=== PATIENT | male | born 1970 | race Caucasian/White ===

== ENCOUNTER 2018-03-11 07:23 | Emergency (ER) | payer OTHER, SELFPAY ==
[2018-03-11 07:27] VITALS: BP 173/102; PULSE 70; RESP 17; TEMP 36.6; O2SAT 100
--- NOTE | 2018-03-11 07:45 | W.ED.GENAD ---
Discharge Plan Disposition Patient Disposition: HOME Condition: Good Discharge Details Chief Complaint: Laceration Clinical Impression: Laceration Primary Care Provider: Yasmany Askew ED Provider: He Odom Home Meds and New Rx's Prescriptions: No Action divalproex [Depakote] 500 MG tablet,delayed release (DR/EC) 1,000 mg PO DIRECTED Qty: 180 RF: 0 carbamazepine [Tegretol] 200 MG tablet 200 mg PO DIRECTED Qty: 180 RF: 0 nfdhtihgzasc-tazh-zaqej acid [Centrum Complete] 1 EACH tablet 1 tab-cap PO DAILY RF: 0 levocarnitine [L-Carnitine] 500 MG tablet 1,000 mg PO BID RF: 0 lisinopril-hydrochlorothiazide 1 EACH tablet 1 tab-cap PO DAILY Qty: 90 RF: 1 Discharge Instructions Instructions: Laceration (ED) Additional Instructions: Please keep the hand covered, do not submerge in water. If you notice any redness, swelling, worsening pain, please return immediately for reevaluation. If you notice any worsening of your symptoms, or any new symptoms such as vomiting, diarrhea, fever, chills, shortness of breath, chest pain, numbness, weakness, or fainting , please return immediately to the emergency department for reevaluation. Please follow up with your primary care provider as soon as possible for reassessment and reevaluation. As always, it was a pleasure participating in your medical care today. Referrals: Yasmany Askew, DO [Primary Care Provider] - Medical Decision Making This is a pleasant 47-year-old male who presents with a small 1.5 cm laceration that is linear over the distal tip of his middle finger on his right nondominant hand. 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 Bleeding is now stopped. Sensation is intact, flexion extension of the distal tip of the fingers intact. The area was cleaned vigorously the area was Dermabond it successfully without any difficulty or complication. His last tetanus was 9 years ago. We will updated today. With normal sensation normal movement a clean cut, no signs of infection or dirty wound involvement, feel he can be safely discharged. I have extensively reviewed the treatment plan and discharge instructions with the patient. I have addressed all patient concerns at this time. The patient was made aware of what symptoms to monitor for that would warrant a return to the emergency department. Discussed the plan with the patient, they demonstrate verbal understanding and agreement with our assessment and plan at this time. HPI General Date/Time Provider Initiated Documentation: 03/11/18 07:45. HPI Narrative: This is a 47-year-old male with a past medical history of seizures for which he takes Depakote and Tegretol, who presents for a laceration. Roughly 30 minutes prior to arrival the patient cut the distal tip of his middle finger on his right hand with a clean box office manager. Bleeding was stopped after pressure was applied. He is left-hand dominant. He denies any numbness, tingling, or weakness. He has no other complaints. He does not take any blood thinners. He denies any recent surgeries. Pertinent family history, IV or illicit drug use. Related Data Home Medications Medication Instructions Recorded Confirmed carbamazepine [Tegretol] 200 mg PO DIRECTED #180 08/12/12 03/11/18 divalproex [Depakote] 1,000 mg PO DIRECTED #180 08/12/12 03/11/18 tab-cap ycfpcmdjjlir-nrng-wilis acid 1 tab-cap PO DAILY tab-cap 08/30/15 03/11/18 [Centrum Complete Multivit Tab] levocarnitine [L-Carnitine] 1,000 mg PO BID 10/22/17 03/11/18 lisinopril-hydrochlorothiazide 1 tab-cap PO DAILY #90 tab-cap 11/19/17 03/11/18 Previous Rx's Medication Instructions Recorded lisinopril-hydrochlorothiazide 1 tab-cap PO DAILY #90 tab-cap 11/19/17 Allergies Allergy/AdvReac Type Severity Reaction Status Date / Time No Known Allergies Allergy Unverified 10/22/17 11:10 General Stated Complaint: Laceration LATIA: 4 Review of Systems Review of Systems All systems reviewed & are unremarkable except as noted in HPI and below PFSH Family History Mother Essential hypertension Neoplasm Father No problems noted. Sister No problems noted. Brother No problems noted. Grandfather Essential hypertension Heart disease Hyperlipidemia Grandfather Essential hypertension Heart disease Grandmother Neoplasm Grandmother Essential hypertension Heart disease Neoplasm Social History Smoking/Tobacco Use Status: Former Tobacco Use Surgical History knee repair Exam Narrative Exam Narrative: 1.Const: Well-nourished, Well-developed, appearing stated age 2.Eyes: PERRL, no conjunctival injection, and symmetrical lids. 3.ENT: Atraumatic external nose and ears. Moist MM. Neck: Symmetric, trachea midline, No thyromegaly. 4.CVS: +S1/S2, No murmurs or gallops. Peripheral pulses 2+ and equal in all extremities. Brisk capillary refill in all extremities. 5.RESP: Unlabored respiratory effort. Clear to auscultation bilaterally. No wheezes rales or rhonchi 6.GI: Soft, Nontender/Nondistended, No hepatosplenomegaly. No guarding or rebound. 7.MSK: Normocephalic/Atraumatic, Extremities w/o deformity or ttp No cyanosis or clubbing, Normal movement of all extremities 8.Skin: Warm, Dry. No rashes or lesions. The patient does have a small 1.5 cm laceration to the distal tip of his middle finger on the right. It is perpendicular to the length of the finger. Superficial in nature. Skin flap is noted. No evidence of deep tissue or tendon involvement. Normal flexion and extension of the distal tip. Normal sensation throughout the finger. There is even sensation present on the skin was lacerated on my exam. No active bleeding. Brisk capillary refill. 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 Sensation grossly intact, no focal neurologic deficits. 10.Psych: (AAO) x3. Appropriate mood and affect Course Vital Signs Temperature 36.6 C 03/11/18 07:27 Pulse 70 03/11/18 07:27 Respiratory Rate 17 03/11/18 07:27 Blood Pressure 173/102 H 03/11/18 07:27 Pulse Oximetry 100 03/11/18 07:27 Temperature 36.6 C 03/11/18 07:27 Temperature Source Temporal Artery Scan 03/11/18 07:27 Pulse 70 03/11/18 07:27 Respiratory Rate 17 03/11/18 07:27 Respiratory Effort 03/11/18 07:29 Blood Pressure 173/102 H 03/11/18 07:27 Blood Pressure Position Sitting 03/11/18 07:27 Pulse Oximetry 100 03/11/18 07:27 Oxygen Delivery Method Room Air 03/11/18 07:27 Oxygen Flow Rate 0 03/11/18 07:27 Pain Level 1 03/11/18 07:27
[2018-03-11] MEDS: Tetanus & Diphtheria Tox,ADULT 0.5 ML VIAL IM (07:48)
--- NOTE | 2018-03-11 07:51 | ED.GENADUL_ITS ---
Discharge Plan Disposition Patient Disposition: HOME Condition: Good Discharge Details Chief Complaint: Laceration Clinical Impression: Laceration Primary Care Provider: Yasmany Askew ED Provider: He Odom Home Meds and New Rx's Prescriptions: No Action divalproex [Depakote] 500 MG tablet,delayed release (DR/EC) 1,000 mg PO DIRECTED Qty: 180 RF: 0 carbamazepine [Tegretol] 200 MG tablet 200 mg PO DIRECTED Qty: 180 RF: 0 qnoodphnewvl-dwcg-jwtfd acid [Centrum Complete] 1 EACH tablet 1 tab-cap PO DAILY RF: 0 levocarnitine [L-Carnitine] 500 MG tablet 1,000 mg PO BID RF: 0 lisinopril-hydrochlorothiazide 1 EACH tablet 1 tab-cap PO DAILY Qty: 90 RF: 1 Discharge Instructions Instructions: Laceration (ED) Additional Instructions: Please keep the hand covered, do not submerge in water. If you notice any redness, swelling, worsening pain, please return immediately for reevaluation. If you notice any worsening of your symptoms, or any new symptoms such as vomiting, diarrhea, fever, chills, shortness of breath, chest pain, numbness, weakness, or fainting , please return immediately to the emergency department for reevaluation. Please follow up with your primary care provider as soon as possible for reassessment and reevaluation. As always, it was a pleasure participating in your medical care today. Referrals: Yasmany Askew, DO [Primary Care Provider] - Medical Decision Making This is a pleasant 47-year-old male who presents with a small 1.5 cm laceration that is linear over the distal tip of his middle finger on his right nondominant hand. 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 Bleeding is now stopped. Sensation is intact, flexion extension of the distal tip of the fingers intact. The area was cleaned vigorously the area was Dermabond it successfully without any difficulty or complication. His last tetanus was 9 years ago. We will updated today. With normal sensation normal movement a clean cut, no signs of infection or dirty wound involvement, feel he can be safely discharged. I have extensively reviewed the treatment plan and discharge instructions with the patient. I have addressed all patient concerns at this time. The patient was made aware of what symptoms to monitor for that would warrant a return to the emergency department. Discussed the plan with the patient, they demonstrate verbal understanding and agreement with our assessment and plan at this time. HPI General Date/Time Provider Initiated Documentation: 03/11/18 07:45 . HPI Narrative: This is a 47-year-old male with a past medical history of seizures for which he takes Depakote and Tegretol, who presents for a laceration. Roughly 30 minutes prior to arrival the patient cut the distal tip of his middle finger on his right hand with a clean telephone coin box collector. Bleeding was stopped after pressure was applied. He is left-hand dominant. He denies any numbness, tingling, or weakness. He has no other complaints. He does not take any blood thinners. He denies any recent surgeries. Pertinent family history, IV or illicit drug use. Related Data Home Medications Medication Instructions Recorded Confirmed carbamazepine [Tegretol] 200 mg PO DIRECTED #180 08/12/12 03/11/18 divalproex [Depakote] 1,000 mg PO DIRECTED #180 08/12/12 03/11/18 tab-cap vgeeprouftcv-sxod-ciyqp acid 1 tab-cap PO DAILY tab-cap 08/30/15 03/11/18 [Centrum Complete Multivit Tab] levocarnitine [L-Carnitine] 1,000 mg PO BID 10/22/17 03/11/18 lisinopril-hydrochlorothiazide 1 tab-cap PO DAILY #90 tab-cap 11/19/17 03/11/18 Previous Rx's Medication Instructions Recorded lisinopril-hydrochlorothiazide 1 tab-cap PO DAILY #90 tab-cap 11/19/17 Allergies Allergy/AdvReac Type Severity Reaction Status Date / Time No Known Allergies Allergy Unverified 10/22/17 11:10 General Stated Complaint: Laceration LATIA: 4 Review of Systems Review of Systems All systems reviewed & are unremarkable except as noted in HPI and below PFSH Family History Mother Essential hypertension Neoplasm Father No problems noted. Sister No problems noted. Brother No problems noted. Grandfather Essential hypertension Heart disease Hyperlipidemia Grandfather Essential hypertension Heart disease Grandmother Neoplasm Grandmother Essential hypertension Heart disease Neoplasm Social History Smoking/Tobacco Use Status: Former Tobacco Use Surgical History knee repair Exam Narrative Exam Narrative: 1.Const: Well-nourished, Well-developed, appearing stated age 2.Eyes: PERRL, no conjunctival injection, and symmetrical lids. 3.ENT: Atraumatic external nose and ears. Moist MM. Neck: Symmetric, trachea midline, No thyromegaly. 4.CVS: +S1/S2, No murmurs or gallops. Peripheral pulses 2+ and equal in all extremities. Brisk capillary refill in all extremities. 5.RESP: Unlabored respiratory effort. Clear to auscultation bilaterally. No wheezes rales or rhonchi 6.GI: Soft, Nontender/Nondistended, No hepatosplenomegaly. No guarding or rebound. 7.MSK: Normocephalic/Atraumatic, Extremities w/o deformity or ttp No cyanosis or clubbing, Normal movement of all extremities 8.Skin: Warm, Dry. No rashes or lesions. The patient does have a small 1.5 cm laceration to the distal tip of his middle finger on the right. It is perpendicular to the length of the finger. Superficial in nature. Skin flap is noted. No evidence of deep tissue or tendon involvement. Normal flexion and extension of the distal tip. Normal sensation throughout the finger. There is even sensation present on the skin was lacerated on my exam. No active bleeding. Brisk capillary refill. 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 Sensation grossly intact, no focal neurologic deficits. 10.Psych: (AAO) x3. Appropriate mood and affect Course Vital Signs Temperature 36.6 C 03/11/18 07:27 Pulse 70 03/11/18 07:27 Respiratory Rate 17 03/11/18 07:27 Blood Pressure 173/102 H 03/11/18 07:27 Pulse Oximetry 100 03/11/18 07:27 Temperature 36.6 C 03/11/18 07:27 Temperature Source Temporal Artery Scan 03/11/18 07:27 Pulse 70 03/11/18 07:27 Respiratory Rate 17 03/11/18 07:27 Respiratory Effort 03/11/18 07:29 Blood Pressure 173/102 H 03/11/18 07:27 Blood Pressure Position Sitting 03/11/18 07:27 Pulse Oximetry 100 03/11/18 07:27 Oxygen Delivery Method Room Air 03/11/18 07:27 Oxygen Flow Rate 0 03/11/18 07:27 Pain Level 1 03/11/18 07:27
== END 2018-03-11 07:54 | disposition home or self-care (01) ==
PROVIDERS: Emergency Provider Student in an Organized Health Care Education/Training Program; PCP Emergency Medicine
DX: S61.212A Laceration without foreign body of right middle finger without damage to nail, initial encounter (principal); W26.0XXA Contact with knife, initial encounter; Y99.0 Civilian activity done for income or pay
CPT/HCPCS: 12001; 90471

== ENCOUNTER 2019-06-22 15:44 | Outpatient (CLI) | payer OTHER, SELFPAY ==
[2019-06-22 16:24] LABS: HCT 33.8 % (40.0-50.0); Mean Corp. HGB Concentration 35.5 g/dL (32.0-36.0); Mean Corpuscular Hemoglobin 32.8 pg (27.0-33.0); Mean Corpuscular Volume 92.3 fL (80-95); Mean Platelet Volume 8.7 fL (8.0-11.0); Platelet Count 189 x1000/uL (130-400); RBC 3.66 m/cumm (4.50-6.00); RBC Distribution Width 12.4 % (11.8-14.1); White Blood Cell Count 5.21 k/cumm (4.4-10.8)
[2019-06-22 17:37] LABS: ESR 17 mm/hr (0-15)
[2019-06-22 19:11] LABS: Anion Gap 11.2 mmol/L (3-11); BUN 22 mg/dL (7-18); C-Reactive Protein 3.31 mg/dL (0.0-0.3); CO2 26.8 mmol/L (21.0-32.0); CREATININE 0.67 mg/dL (0.70-1.30); Chloride 105 mmol/L (98-107); Glucose 96 mg/dL (74-106); Sodium 143 mmol/L (136-145)
== END 2019-06-22 16:04 ==
PROVIDERS: PCP Emergency Medicine; Visit Provider Emergency Medicine
DX: I10 Essential (primary) hypertension (principal); K52.9 Noninfective gastroenteritis and colitis, unspecified; R19.7 Diarrhea, unspecified
CPT/HCPCS: 36415; 80048; 85027; 85652; 86140

== ENCOUNTER 2019-07-01 09:27 | Outpatient (REF) | payer OTHER, SELFPAY ==
[2019-07-03 10:59] LABS: Campylobacter PCR Negative (Negative); Salmonella PCR Negative (Negative); Shiga Toxin PCR Negative (Negative); Shigella/Enteroinvasive Ecoli Negative (Negative)
== END 2019-07-01 09:47 ==
LOC: LBN 09:27
PROVIDERS: PCP Emergency Medicine; Visit Provider Physical Therapy Assistant
DX: K52.9 Noninfective gastroenteritis and colitis, unspecified (principal)
CPT/HCPCS: 87505; 87177

== ENCOUNTER 2021-07-16 15:37 | Outpatient (REF) | payer BC, SELFPAY ==
[2021-07-18 12:26] LABS: COVID-19 RT-PCR UVMMC Result Negative (Negative)
== END 2021-07-16 15:38 | disposition home or self-care (01) ==
LOC: LBN 15:37
PROVIDERS: PCP Family Medicine; Visit Provider Nurse Practitioner
DX: R05.9 Cough, unspecified (principal); Z20.822 Contact with and (suspected) exposure to COVID-19
CPT/HCPCS: U0003

== ENCOUNTER → 2021-07-17 16:28 | Outpatient (CLI) | payer BC, SELFPAY ==
--- NOTE | 2021-07-17 08:45 | DI.RAD_ITS ---
Exam(s) XR CHEST 2V PA LATERAL EXAM: XR CHEST 2V PA LATERAL CLINICAL HISTORY: cough, R05.9 TECHNIQUE: 2D digital imaging was performed. COMPARISON: CR CHEST 2 VIEWS PA,LAT from 04/01/2010 FINDINGS: The heart is not enlarged. The lungs are clear and well expanded. No pleural effusion seen. Mediastin al contours appear intact. IMPRESSION: Normal chest. RADIATION DOSE DELIVERED: Total DLP
== END ==
PROVIDERS: PCP Family Medicine; Visit Provider Nurse Practitioner
DX: R05.8 Other specified cough (principal)
CPT/HCPCS: 71046

== ENCOUNTER 2022-03-13 01:58 | Outpatient (CLI) | payer BC, SELFPAY ==
[2022-03-13 08:10] LABS: ALT 29 U/L (16-63); AST 15 U/L (15-37); Albumin 3.7 g/dL (3.4-5.0); Alkaline Phosphatase 61 U/L (46-116); Anion Gap 8.6 mmol/L (3-11); BUN 12 mg/dL (7-18); Bilirubin, Total 0.5 mg/dL (0.2-1.0); CO2 28.4 mmol/L (21.0-32.0); CREATININE 0.7 mg/dL (0.70-1.30); Calcium 8.5 mg/dL (8.5-10.1); Calculated LDL 129 mg/dL (<100); Chloride 101 mmol/L (98-107); Cholesterol 208 mg/dL (<200); Estimated GFR 111.56 (mL/min/1.73m2); Glucose 139 mg/dL (74-106); HDL Cholesterol 50 mg/dL (40-60); Potassium 3.5 mmol/L (3.5-5.1); Sodium 138 mmol/L (136-145); Total Protein 7.3 g/dL (6.4-8.2); Triglyceride 146 mg/dL (<150)
[2022-03-13 19:39] LABS: PSA, Screening 0.3 ng/mL (<=3.5)
[2022-03-16 09:57] LABS: Hepatitis C Ab w Rflx HCV PCR Negative (Negative)
[2022-03-16 10:27] LABS: HIV-1/2 Ag & Ab Screen Negative (Negative)
== END 2022-03-13 01:59 | disposition home or self-care (01) ==
LOC: LBO 01:58
PROVIDERS: PCP Family Medicine; Visit Provider Family Medicine
DX: I10 Essential (primary) hypertension (principal); Z15.09 Genetic susceptibility to other malignant neoplasm; Z11.3 Encounter for screening for infections with a predominantly sexual mode of transmission; Z11.4 Encounter for screening for human immunodeficiency virus [HIV]; Z11.59 Encounter for screening for other viral diseases; Z12.5 Encounter for screening for malignant neoplasm of prostate
CPT/HCPCS: 36415; 80053; 80061; 84153; 86803; 87389

== ENCOUNTER 2022-11-18 17:40 | Outpatient (CLI) | payer BC, SELFPAY ==
--- NOTE | 2022-11-18 13:15 | DI.RAD_ITS ---
Exam(s) XR CHEST 2V PA LATERAL EXAM: XR CHEST 2V PA LATERAL CLINICAL HISTORY: SOB, R06.02; Cough, R05.9; Scattered rhonchi, lt lung, R09.89 TECHNIQUE: 2D digital imaging was performed of the chest. Two images were obtained. PA and lateral views were obtained. COMPARISON: CR XR CHEST 2V PA LATERAL from 07/17/2021 FINDINGS: MEDIASTINUM: Normal. HEART: Normal. PULMONARY VASCULATURE: Normal. LUNGS: Clear. PLEURAL SPACE: No pleural effusion or pneumothorax. BONE:Within normal limits for the patient's age. OTHER FINDINGS:Normal. IMPRESSION: No acute pulmonary findings. DATA REPOSITORY: RADIATION DOSE DELIVERED:
== END 2022-11-18 18:00 ==
LOC: DI 17:41
PROVIDERS: PCP Family Medicine; Visit Provider Nurse Practitioner Adult Health
DX: R05.9 Cough, unspecified (principal); R06.02 Shortness of breath; R09.89 Other specified symptoms and signs involving the circulatory and respiratory systems
CPT/HCPCS: 71046

== ENCOUNTER 2024-01-12 14:51 | Outpatient (CLI) | payer BC, SELFPAY ==
--- NOTE | 2024-01-12 14:30 | DI.RAD_ITS ---
Exam(s) XR SHOULDER LT COMPLETE 2+V EXAM: XR SHOULDER LT COMPLETE 2+V CLINICAL HISTORY: BILATERAL SHOULDER PAIN. TECHNIQUE: 2D digital imaging was performed. Three views. COMPARISON: No exams were available for comparison FINDINGS: BONES: No acute fracture is present. No bony destructive lesion is seen. JOINTS: No dislocation present. Glenohumeral joint space is maintained. Minimal spurring at the AC joint. SOFT TISSUE: Normal. IMPRESSION: Minimal degenerative changes. DATA REPOSITORY: RADIATION DOSE DELIVERED:
--- NOTE | 2024-01-12 15:09 | DI.RAD_ITS ---
Exam(s) XR SHOULDER RT COMPLETE 2+V EXAM: XR SHOULDER RT COMPLETE 2+V CLINICAL HISTORY: BILATERAL SHOULDER PAIN. TECHNIQUE: 2D digital imaging was performed. Five views. COMPARISON: CR XR SHOULDER LT COMPLETE 2+V from 01/12/2024 FINDINGS: BONES: No acute fracture is present. No bony destructive lesion is seen. JOINTS: No dislocation present. No significant degenerative changes SOFT TISSUE: Normal. IMPRESSION: Unremarkable radiographs of the right shoulder. DATA REPOSITORY: RADIATION DOSE DELIVERED:
== END 2024-01-12 14:52 | disposition home or self-care (01) ==
LOC: DIORS 14:51
PROVIDERS: PCP Family Medicine; Visit Provider Student in an Organized Health Care Education/Training Program
DX: M25.511 Pain in right shoulder (principal); M25.512 Pain in left shoulder; M19.012 Primary osteoarthritis, left shoulder
CPT/HCPCS: 73030

== ENCOUNTER 2024-02-23 09:18 | Day surgery (SDC) | payer BC, SELFPAY ==
[2024-02-21 09:56] VITALS: BP 161/92; PULSE 63; RESP 16; TEMP 36.4; O2SAT 100
--- NOTE | 2024-02-22 19:51 | W.PM.DSUDISC ---
Date of service: 02/23/24 Time of Service: 13:11 Discharge Plan Disposition Patient Disposition: Home Condition: Good Discharge Details Reason For Visit: excisiona and closure of seborrheic keratosis Attending Provider: Demarcus Garcia Primary Care Provider: Yasmany Casiano Home Meds and New Rx's Prescriptions: Continued fluticasone propionate 50 mcg/actuation spray,suspension 1 spray intranasal DAILY PRN (Reason: Sinus pain/pressure) Rx Instructions: administer into each nostril L-Carnitine 500 mg tablet 500 mg PO BID carbamazepine [Tegretol] 200 mg tablet See Rx Instructions PO DIRECTED Qty: 450 3RF Rx Instructions: t2 tabs QAM and QHS and t1 tab Qnoon PO as directed; divalproex [Depakote] 500 mg tablet,delayed release (DR/EC) See Rx Instructions PO DIRECTED Qty: 360 3RF Rx Instructions: t1 tab qam, qnoon and t2 tabs qhs PO as directed; albuterol sulfate [Ventolin HFA] 90 mcg/actuation HFA aerosol inhaler 1 - 2 puff inhalation Q4H PRN (Reason: shortness of breath or wheezing) Qty: 8.5 3RF lisinopril-hydrochlorothiazide 20-12.5 mg tablet 1 tab PO DAILY Qty: 90 3RF Discharge Instructions Additional Instructions: Festus, it was great seeing you today, and I hope you are comfortable during the procedure. As you know, everything went very smoothly. We removed that lesion, and I will send it off to the pathologist for their review. You have 4 stitches in the skin that will have to be removed in the office next week. I have taken the liberty of making a follow-up appointment on to get the stitches out on the at 1 PM. You also have some Steri-Strips over top of that. Expect to have a little bit of swelling over the area, and perhaps some bruising. That is extremely common. You may find that a little ice pack or something cool over the incision will help reduce swelling, and may make you feel a little bit better. You can wash your face this evening with warm soapy water. I would like you to apply a thin layer of the bacitracin ointment once in the evening and once in the morning every day. It can go right over the Steri-Strips and stitches. If you find the incision becomes itchy during the course of the day, the bacitracin ointment may help with that as well. If you need anything at all, or have any questions, please do not hesitate to call. Stand Alone Forms: Dotty Rees ([facility]) Referrals: Demarcus Garcia MD [ [facility] STAFF PHYSICIAN] - (February 28 at 1 PM) Activity:: Activity as Tolerated Remove Dressings/Wound Care:: 24 hours Shower/Bathe:: 24 hours Diet:: As Tolerated Discharge Orders Discharge Orders: Discharge Order (Routine); Ordered 02/22/24 Ordered By: Demarcus Garcia DS: Diagnosis Discharge Diagnosis (1) Seborrheic keratosis: Status: Acute Asessment and Plan: Outpatient postoperative follow-up next week for suture removal
--- NOTE | 2024-02-22 19:54 | OPPNE_ITS ---
Date of service: 02/23/24 Time of Service: 13:25 Procedure Note Date of procedure: 02/23/24 Procedure: Excision and closure of seborrheic keratosis Surgeon/Proceduralist/Physician: Demarcus Garcia Procedure Diagnosis: seborrheic keratosis Procedure Indications: Festus is a 53-year-old male with a lesion on the right maxilla that seems consistent with a support keratosis. Its become increasingly symptomatic, with particular challenges associated with shaving around the area Procedure Description: Festus was brought back to the operating room, and placed in a semirecumbent position. Great care was taken to ensure that he was supported and padded appropriately and that he was comfortable. Next, I prepped the right maxilla w ith Betadine, and draped the area appropriately. I then established a generous field block using local anesthetic with epinephrine. Next, using a 15 blade scalpel, I made a semielliptical incision in the upper and lower portions of the skin lesion. I dissected down to the subcutaneous space, and sharply divided the full-thickness of the skin away from the surrounding fat. The excision was approximately 2-1/2 cm long by about 0.75 centimeters wide. Fine Bovie tip electrocautery was used for hemostasis. There was minimal bleeding. Skin was then closed with interrupted 6-0 Prolene stitches and Steri-Strips. Specimen was marked with a single suture marking the corner towards the patient's nose. Festus was then brought back to the day surgery unit and provided instructions for discharge.
[2024-02-23] MEDS: Gabapentin 300 MG CAP PO (10:17)
[2024-02-23] MEDS: Acetaminophen 500 MG TAB 1000 MG PO (10:17)
--- NOTE | 2024-02-23 13:00 | SKI_PTH ---
PATIENT: Festus Taveras LOC: [facility] U#:[id number] AGE/SX: 53/M ROOM: RE02/23/[address]: Demarcus Garcia MD : [id number] BED: DIS: 02/23/2024 SPEC #: [id number] RECD: 02/23/24 17:44 STATUS: HARMEET REQ #: [id number] BLANQUITA: 02/23/24 13:[address]: Demarcus Garcia DEPT: Surgical Specimen RECD BY: Anna Palomo ENTERED: 02/23/24 17:45 SP TYPE: TAI SLOAN DR: Yasmany Casiano DO Tissues: 1 - SKIN BIOPSY(SHAVE/PUNCH) Procedures: SKIN LEVEL 4 Comments: [id number]
[2024-02-23] MEDS: Bacitracin 30 GM TUBE (13:03)
[2024-02-23] MEDS: Bupivacaine 0.25% Pres-Free W/EPI 30 ML VIAL (13:04)
[2024-02-23 13:12] VITALS: BP 165/101; PULSE 65; RESP 16; TEMP 36; O2SAT 100
[2024-02-23 13:30] VITALS: BP 157/97; PULSE 67
== END 2024-02-23 13:40 | disposition home or self-care (01) ==
LOC: SUR 09:19
PROVIDERS: PCP Family Medicine; Visit Provider Surgery
PROC: 0HB1XZZ Excision of Face Skin, External Approach (ICD-10-PCS; CPT 11443; principal; 2024-02-23 11:45)
DX: L82.1 Other seborrheic keratosis (principal); G40.909 Epilepsy, unspecified, not intractable, without status epilepticus; I10 Essential (primary) hypertension
CPT/HCPCS: 11443; 88305